=== PATIENT | female | born 1965 | race Caucasian/White ===

== ENCOUNTER 2017-01-29 05:45 | Day surgery (SDC) | payer OTHER ==
[~2017-01-29] VITALS: Ht 170.2 cm; Wt 70.8 kg
[~2017-01-29 05:45] MED LIST: ATIVAN1 MG PO; CYCLOBENZAPRINE10 MG PO; CYTOMEL25 MCG PO; DULERA 100 MCG/13 GM INH; GABAPENTIN300 MG PO; IBUPROFEN600 MG PO; L-METHYLFOLATE15 MG PO; LITHIUM CARBON300 M1 PO; NAPROXEN SODIU550 MG PO; NORCO 5-325 TA1 EACH PO; OXYCODONE-ACET1 EAC1 PO; REGLAN10 MG PO; VYVANSE60 MG PO; WELLBUTRIN XL300 MG PO
--- NOTE | 2017-01-29 07:46 | NUR ---
PT ASLEEP-STAFF REQUESTED I NOT DISTURB PT AT THIS TIME.
--- NOTE | 2017-02-12 10:10 | OR ---
[facility] [address], [place] [address] Signed DATE OF OPERATION: 01/29/2017 SURGEON: Jyoti Estrada MD COLONOSCOPY REPORT PREOPERATIVE DIAGNOSIS: Screening. POSTOPERATIVE DIAGNOSES: 1. A 4 mm lesion, cecum. 2. Internal anal skin tag x1. PROCEDURE: Colonoscopy with hot biopsy. ESTIMATED BLOOD LOSS: None. INDICATIONS: Mira is a 51-year-old female who asked to see me for her initial screening colonoscopy. She has lower GI complaints. She is adopted and has no knowledge of her biologic family. I gave her a pamphlet in the office on colonoscopy and we looked at that together along with the risks including, but not limited to gas, bloating, crampy abdominal pain, bleeding, perforation requiring surgery, and missed diagnosis. We also discussed the need for IV conscious sedation. Given her complex medical history including her daily need for lorazepam and lithium, we asked that an anesthesia provider help us with increased monitoring and sedation with propofol. She had expressed understanding and wished to proceed. PROCEDURE NOTE: Mira was taken into our endoscopy suite and placed in the left lateral decubitus position. She was given IV sedation with propofol per nurse store sales manager. A digital rectal exam was performed. This was unremarkable. The adult colonoscope was introduced and advanced all around into the cecum under direct visualization of camera. We did use some counter abdominal compression in order to advance the scope. The scope would buckled several times and we had to withdraw the scope and advanced the scope and eventually made it into the cecum. Her prep was good. The scope was then slowly withdrawn. We saw just a tiny 4 mm lesion opposite the ileocecal valve in the cecum. We went ahead and biopsied and destroyed it completely with the help of a hot biopsy forceps. The rest of the colon and rectum was unremarkable. Upon retroflexion of scope, we could see a standard internal anal skin tag. After this, the gas was suctioned out. The colonoscope removed. Mira tolerated procedure quite well. RECOMMENDATIONS: I will see Mira back in my office in 7 to 14 days to review her results. Electronically Signed By: JYOTI ESTRADA MD 02/12/17 1010 PATIENT NAME: MIRA BOWSER OPERATIVE REPORT DATE OF : 65 PHYSICIAN: JYOTI ESTRADA MD REPORT #: [id number] REPORT IS CONFIDENTIAL AND NOT TO BE RELEASED WITHOUT AUTHORIZATION [address] [address] Signed Jyoti Estrada MD ALB/MODL /[id number] cc: RILEY George NP Andrew L Bower, MD Patricia J Winn, MD Electronically Signed By: JYOTI ESTRADA MD 02/12/17 1010 PATIENT NAME: MIRA BOWSER OPERATIVE REPORT DATE OF : 65 PHYSICIAN: JYOTI ESTRADA MD REPORT #: [id number] REPORT IS CONFIDENTIAL AND NOT TO BE RELEASED WITHOUT AUTHORIZATION
== END 2017-01-29 08:55 | disposition home or self-care (01) ==
LOC: DS 05:45 → OPS 05:45 → DS 06:45 → OPS 06:45
PROVIDERS: Colon & Rectal Surgery
PROC: 0DBH8ZX Excision of Cecum, Via Natural or Artificial Opening Endoscopic, Diagnostic (ICD-10-PCS; principal; 2017-01-29 06:45)
DX: Z12.11 Encounter for screening for malignant neoplasm of colon (principal); K52.9 Noninfective gastroenteritis and colitis, unspecified; K63.5 Polyp of colon; K64.4 Residual hemorrhoidal skin tags; J45.909 Unspecified asthma, uncomplicated; F31.9 Bipolar disorder, unspecified; Z90.89 Acquired absence of other organs; Z88.0 Allergy status to penicillin; Z88.5 Allergy status to narcotic agent; Z87.891 Personal history of nicotine dependence; Z98.890 Other specified postprocedural states; Z79.899 Other long term (current) drug therapy
CPT/HCPCS: 00810; J2405; J2550; J2704; J7120